=== PATIENT | female | born 1995 | race Caucasian/White ===

== ENCOUNTER 2017-09-27 22:27 | Emergency (ER) | payer OTHER ==
[~2017-09-27] VITALS: Ht 165.1 cm; Wt 63.5 kg
[2017-09-27 22:35] VITALS: BP 114/72
== END 2017-09-27 22:45 | disposition left against medical advice (07) ==
LOC: EDBD 22:27 → ER 22:33
DX: T40.1X1A Poisoning by heroin, accidental (unintentional), initial encounter (principal); Z53.21 Procedure and treatment not carried out due to patient leaving prior to being seen by health care provider; Y92.89 Other specified places as the place of occurrence of the external cause